=== PATIENT | male | born 1990 | race African-American/Black ===

== ENCOUNTER 2019-03-06 22:05 | Emergency (ER) | payer SELFPAY ==
[~2019-03-06] VITALS: Ht 182.9 cm; Wt 83.9 kg
[2019-03-06 23:15] VITALS: Ht 182.9 cm; Wt 83.9 kg
[2019-03-07 00:33] LABS: BASOPHIL % 0.4 % (0-2); RED CELL DISTRIBUTION WIDTH 13.4 % (11.5-14.5)
[2019-03-07 00:34] LABS: PLATELET COUNT 124 x10^3mcL (130-400)
[2019-03-07 00:42] LABS: CARBON DIOXIDE 32.8 mmol/L (21-32); CHLORIDE SERUM 103 mmol/L (98-107); GFR1 > 60 mL/min; GLUCOSE SERUM 93 mg/dL (74-106); POTASSIUM SERUM 3.5 mmol/L (3.5-5.1); SODIUM SERUM 143 mmol/L (136-145)
[2019-03-07 03:10] VITALS: BP 127/75
== END 2019-03-07 03:10 | disposition home or self-care (01) ==
LOC: ED 22:05
PROVIDERS: Emergency Medicine
DX: I30.9 Acute pericarditis, unspecified (principal)
CPT/HCPCS: 36415